=== PATIENT | female | born 1965 | race Hispanic/Latino ===

== ENCOUNTER 2019-02-21 13:57 | Emergency (ER) | payer OTHER ==
[~2019-02-21] VITALS: Ht 157.5 cm; Wt 71.7 kg
[2019-02-21] MEDS ORDERED: ONDANSETRON HCL INJ 2MG/ML 2ML 2 MG/ML VIAL IV ONE (14:28)
[2019-02-21] MEDS ORDERED: ASPIRIN 81 MG CHEW TAB PO ONE (14:30)
[2019-02-21 15:07] LABS: BASOPHILS % 0.3 % (0.0-1.0); EOSINOPHILS # (AUTO) 0.1 (0.0-0.4); EOSINOPHILS % 0.5 % (0.0-6.0); HEMOGLOBIN 13.6 g/dL (12.0-16.0); LYMPHOCYTES # (AUTO) 2.1 (1.0-3.2); LYMPHOCYTES % 19.5 % (18.0-39.1); MEAN CORPUSCULAR HGB CONC 33.2 g/dL (31-35); MEAN CORPUSCULAR VOLUME 81.5 fL (81-99); MONOCYTES # (AUTO) 0.6 (0.2-0.8); MONOCYTES % 5.9 % (4.4-11.3); NEUTROPHILS # (AUTO) 7.8 (2.1-6.9); NEUTROPHILS % 73.5 % (38.7-80.0); PLATELET COUNT 313 x10e3/uL (140-360); RED BLOOD COUNT 5.03 x10e6/uL (3.6-5.1); RED CELL DISTRIBUTION WIDTH 13.3 % (11.7-14.4)
[2019-02-21 15:15] LABS: INR 0.92; PROTHROMBIN TIME 12.8 seconds (11.9-14.5)
[2019-02-21 15:16] LABS: PARTIAL THROMBOPLASTIN TIME 30.9 seconds (23.8-35.5)
[2019-02-21 15:23] LABS: ALANINE AMINOTRANSFERASE 26 IU/L (0-55); ALBUMIN 4.1 g/dL (3.5-5.0); ALKALINE PHOSPHATASE 82 IU/L (40-150); ANION GAP 12.9 mmol/L (8-16); BLOOD UREA NITROGEN 16 mg/dL (7-26); BUN/CREATININE RATIO 21 (6-25); CALCIUM 9.9 mg/dL (8.4-10.2); CARBON DIOXIDE 24 mmol/L (22-29); CHLORIDE 106 mmol/L (98-107); CREATINE KINASE 61 IU/L (29-168); CREATININE, SERUM 0.77 mg/dL (0.57-1.11); EST GLOMERULAR FILTRATION RATE > 60 ML/MIN (60-); GLUCOSE 98 mg/dL (74-118); POTASSIUM 3.9 mmol/L (3.5-5.1); SODIUM 139 mmol/L (136-145)
--- NOTE | 2019-02-21 15:37 | Diagnostic Imaging Report ---
EXAMINATION: PA and lateral views of the chest. COMPARISON: None CLINICAL HISTORY: Chest pain DISCUSSION: Lines/tubes: None. Lungs: The lungs are well inflated and clear. No pneumonia or pulmonary edema. Pleura: No no pleural effusion or pneumothorax. Heart and mediastinum: The cardiomediastinal silhouette is normal. Bones and soft tissues: No acute bony abnormalities. IMPRESSION: No acute cardiopulmonary abnormalities. Signed by: Dr. Faisal Zhao M.D. on 02/21/2019 3:34 PM
[2019-02-21 15:42] LABS: THYROID STIMULATING HORMONE 0.553 uIU/mL (0.350-4.940)
[2019-02-21 15:43] LABS: BILIRUBIN,URINE NEGATIVE (NEGATIVE); CLARITY,URINE CLEAR (CLEAR); COLOR,URINE YELLOW (YELLOW); KETONES,URINE NEGATIVE (NEGATIVE); LEUKOCYTE ESTERASE ,URINE TRACE (NEGATIVE); NITRITE,URINE NEGATIVE (NEGATIVE); PROTEIN,URINE DIPSTICK NEGATIVE (NEGATIVE); URINE UROBILINOGEN 0.2 mg/dL (0.2 - 1)
[2019-02-21 15:46] LABS: PREGNANCY TEST, URINE NEGATIVE (NEGATIVE)
[2019-02-21 15:57] LABS: BACTERIA,URINE FEW /HPF; EPITHELIAL CELLS,URINE FEW /LPF; MUCUS,URINE MODERATE (RARE); RBC,URINE 0-5 /HPF (0-5); WBC,URINE (MAN) 0-5 /HPF (0-5)
[2019-02-21] MEDS ORDERED: KETOROLAC TROMETHAMINE 30 MG/ML VIAL IV STA (15:57)
--- NOTE | 2019-02-21 16:00 | NUR ---
PATIENT TO ROOM 3
== END 2019-02-21 17:11 | disposition home or self-care (01) ==
LOC: ER 13:57
DX: R07.89 Other chest pain (principal); F41.1 Generalized anxiety disorder; K21.9 Gastro-esophageal reflux disease without esophagitis
CPT/HCPCS: 36415; 71046; 80053; 81001; 81025; 82550; 82553; 83880; 84443; 84484; 85025; 85610; 85730; 87086; 93005; 99284; J1885; J2405

== ENCOUNTER → 2025-03-07 | Outpatient (REF) | payer OTHER ==
[~2025-03-07] MED LIST: IOPAMIDOL 370 MG/ML 100 ML INFUS..BTL INJ ONE
[2025-03-07 12:40] LABS: EST GLOMERULAR FILTRATION RATE 87.0 ML/MIN (>=60)
== END ==
LOC: CT 11:45
PROVIDERS: ATTEND Internal Medicine Gastroenterology
DX: R93.3 Abnormal findings on diagnostic imaging of other parts of digestive tract (principal); Z68.27 Body mass index [BMI] 27.0-27.9, adult; Z78.9 Other specified health status
CPT/HCPCS: 36415; 74170; 82565; 84520; Q9967